=== PATIENT | female | born 1955 | race Caucasian/White ===

== ENCOUNTER 2019-02-03 22:58 | Emergency (ER) | payer OTHER ==
[~2019-02-03] VITALS: Wt 78.5 kg
[2019-02-04] MEDS ORDERED: METO-319 PO (02:27)
--- NOTE | 2019-02-04 02:30 | ERD ---
ER Documentation Chief Complaint Chief Complaint FULLER, 'hot' sensation face. persistent HTN today; took propranolol earlier. HPI This is a very pleasant 63-year-old female comes in with complaints of a hot sensation in her face and pain in her head that radiates down to her neck. She checked her blood pressure twice noted that was near systolics of 200. She recently had her blood pressure medications changed and says that not been working for her. She denies any fevers chills nausea vomiting or any narinder chest pain. Denies any shortness of breath. Headache is mild to moderate intensity with no exacerbating relieving factors. No focal neurologic complaints. No change in visual acuity. No nausea or vomiting. ROS All systems reviewed and are negative except as per history of present illness. Medications Home Meds Active Scripts Metoprolol Succinate* (Toprol XL*) 50 Mg Tab.er.24h, 50 MG PO DAILY, #20 TAB Prov:VIDA AUGUSTEDon 02/04/19 Allergies Allergies: Coded Allergies: No Known Allergy (Unverified , 02/03/19) PMhx/Soc History of Surgery: Yes (Tonsilectomy, Gall bladder, appendectomy) Anesthesia Reaction: No Hx Neurological Disorder: No Hx Respiratory Disorders: No Hx Cardiac Disorders: Yes (HTN) Hx Psychiatric Problems: No Hx Miscellaneous Medical Probl: No Hx Alcohol Use: No Hx Substance Use: No Hx Tobacco Use: No Smoking Status: Never smoker Physical Exam Vitals Vital Signs Date Temp Pulse Resp B/P (MAP) Pulse Ox O2 O2 Flow FiO2 Time Delivery Rate 02/03/19 90 14 163/85 100 Room Air 23:35 (111) 02/03/19 99.0 89 16 198/90 98 23:05 (126) Physical Exam Const: No acute distress Head: Atraumatic Eyes: Normal Conjunctiva ENT: Normal External Ears, Nose and Mouth. Neck: Full range of motion. No meningismus. Resp: Clear to auscultation bilaterally Cardio: Regular rate and rhythm, no murmurs Abd: Soft, non tender, non distended. Normal bowel sounds Skin: No petechiae or rashes Back: No midline or flank tenderness Ext: No cyanosis, or edema Neur: Awake and alert Psych: Normal Mood and Affect Result Diagram: 02/03/19 2346 02/03/19 2346 Results 24 hrs Laboratory Tests Test 02/03/19 23:46 White Blood Count 9.7 10^3/ul Red Blood Count 4.71 10^6/ul Hemoglobin 13.9 g/dl Hematocrit 42.1 % Mean Corpuscular Volume 89.4 fl Mean Corpuscular Hemoglobin 29.5 pg Mean Corpuscular Hemoglobin Concent 33.0 g/dl Red Cell Distribution Width 13.2 % Platelet Count 248 10^3/UL Mean Platelet Volume 10.2 fl Immature Granulocytes % 0.200 % Neutrophils % 65.6 % Lymphocytes % 26.3 % Monocytes % 7.0 % Eosinophils % 0.6 % Basophils % 0.3 % Nucleated Red Blood Cells % 0.0 /100WBC Immature Granulocytes # 0.020 10^3/ul Neutrophils # 6.4 10^3/ul Lymphocytes # 2.6 10^3/ul Monocytes # 0.7 10^3/ul Eosinophils # 0.1 10^3/ul Basophils # 0.0 10^3/ul Nucleated Red Blood Cells # 0.0 10^3/ul Sodium Level 143 mmol/L Potassium Level 3.9 mmol/L Chloride Level 105 mmol/L Carbon Dioxide Level 26 mmol/L Anion Gap 12 Blood Urea Nitrogen 14 mg/dl Creatinine 0.67 mg/dl Est Glomerular Filtrat Rate mL/min > 60 mL/min Glucose Level 131 mg/dl Calcium Level 9.6 mg/dl Total Bilirubin 0.3 mg/dl Direct Bilirubin 0.00 mg/dl Indirect Bilirubin 0.3 mg/dl Aspartate Amino Transf (AST/SGOT) 22 IU/L Alanine Aminotransferase (ALT/SGPT) 24 IU/L Alkaline Phosphatase 76 IU/L Troponin I < 0.012 ng/ml B-Type Natriuretic Peptide 55 PG/ML Total Protein 8.5 g/dl Albumin 4.7 g/dl Globulin 3.80 g/dl Albumin/Globulin Ratio 1.23 Procedures/MDM Emergency department course: Patient seen and evaluated charges. Placed in bed from the evaluation. Blood work done. A stat EKG and stat chest x-ray. Placed on Cardiac monitoring as well as continuous pulse oximetry. Blood pressure normalized in the department EKG: Rate/Rhythm: [Normal Sinus Rhythm] QRS, ST, T-waves: [No changes consistent w/ acute ischemia] Impression: [No evidence of ischemia or arrhythmia] Chest X-ray 1V Interpreted by me: Soft Tissue: No acute abnormalities Bones: No acute abnormalities Mediastinum/Cardiac Silhouette/Lungs: [No acute abnormalities] Medical decision making: Patient's neurologic symptoms have stabilized while they have been evaluated in the department and are appropriate for outpatient work up. No e/o meningitis, intracranial bleed, seizure, stroke. Patient's blood pressure was elevated (>120/80) but appears stable without evidence of hypertension emergency or urgency. The patient was counseled about the risks of hypertension and urged to pursue outpatient monitoring and therapy within a week with their primary care physician. Departure Diagnosis: Primary Impression: Hypertension Hypertension type: unspecified Qualified Codes: I10 - Essential (primary) hypertension Condition: Fair Patient Instructions: High Blood Pressure (Hypertension) VIDA AUGUSTE Feb 04, 2019 02:30
[2019-02-04 03:00] VITALS: BP 147/92; PULSE 80; RESP 15
[2019-02-04] MEDS ORDERED: NAPR-985 PO (03:36)
[2019-02-04] MEDS ORDERED: ALPR0.25 PO (03:36)
== END 2019-02-04 03:17 | disposition home or self-care (01) ==
LOC: E/R 22:58
DX: I10 Essential (primary) hypertension (principal)
CPT/HCPCS: 36415; 70450; 71045; 80053; 83880; 84484; 85025; 93005; Z7502